=== PATIENT | female | born 1935 | race Caucasian/White ===

== ENCOUNTER 2024-02-24 15:05 | Outpatient (CLI) | payer MEDICARE, BC, SELFPAY | END 2024-02-24 15:06 | disposition home or self-care (01) | LOC: AMB 03-15 06:23 | PROVIDERS: PCP Family Medicine; Visit Provider Emergency Medicine | DX: R53.1 Weakness (principal) | CPT/HCPCS: A0425; A0427 ==

== ENCOUNTER 2024-03-16 11:56 | Outpatient (CLI) | payer MEDICARE, BC, SELFPAY | END 2024-03-16 11:57 | disposition home or self-care (01) | LOC: AMB 03-18 02:29 | PROVIDERS: PCP Family Medicine; Visit Provider Emergency Medicine Emergency Medical Services | DX: S49.81XA Other specified injuries of right shoulder and upper arm, initial encounter (principal); W07.XXXA Fall from chair, initial encounter; Y92.003 Bedroom of unspecified non-institutional (private) residence as the place of occurrence of the external cause | CPT/HCPCS: A0425; A0427 ==